=== PATIENT | female | born 1995 | race African-American/Black ===

== ENCOUNTER 2022-12-12 11:17 | Emergency (ER) | payer SELFPAY ==
[2022-12-12] MEDS ORDERED: Ondansetron 4 MG/2 ML SDV IVPUSH ONE (11:45)
[2022-12-12] MEDS ORDERED: Sodium Chloride 0.9% 1,000 ML IV SCH ×2 (11:45→13:15)
[2022-12-12] MEDS ORDERED: Pantoprazole 40 MG Vial IVPUSH ONE (12:19)
[2022-12-12] MEDS ORDERED: HYDROmorphone 0.5 MG/0.5 ML Syringe IVPUSH ONE (12:19)
[2022-12-12 12:21] LABS: ESTIMATED GFR 125 mL/min (>60)
== END 2022-12-12 14:35 | disposition home or self-care (01) ==
LOC: JP.ED 11:17
DX: K52.9 Noninfective gastroenteritis and colitis, unspecified (principal); E86.0 Dehydration; Z88.0 Allergy status to penicillin
CPT/HCPCS: 36415; 80053; 81001; 81025; 83690; 85025; 86140; 96361; 96374; 96375; 99284; C9113; J1170; J2405; J7030

== ENCOUNTER 2024-06-26 20:28 | Emergency (ER) | payer OTHER ==
[2024-06-26 21:16] LABS: BASOPHILS ABSOLUTE AUTO 0.03 K/uL (0.00-0.10); BASOPHILS PERCENT AUTO 0.5 % (0.1-1.3); EOSINOPHILS ABSOLUTE AUTO 0.11 K/uL (0.00-0.40); EOSINOPHILS PERCENT AUTO 1.7 % (0.0-5.4); HEMATOCRIT 35.8 % (34.3-46.0); HEMOGLOBIN 13.3 g/dL (11.2-15.5); IMMATURE GRAN ABSOLUTE AUTO 0.02 K/uL (0.00-0.23); IMMATURE GRAN PERCENT AUTO 0.3 % (0.0-0.7); LYMPHOCYTES ABSOLUTE AUTO 1.66 K/uL (0.8-3.3); LYMPHOCYTES PERCENT AUTO 24.9 % (11.4-47.7); MEAN CORPUSCULAR HEMOGLOBIN 31.7 pg (31.6-35.5); MEAN CORPUSCULAR HGB CONC 37.2 g/dL (31.6-35.5); MEAN CORPUSCULAR VOLUME 85.2 fL (81.4-99.0); MONOCYTES PERCENT AUTO 7.5 % (3.3-12.6); NEUTROPHILS ABSOLUTE AUTO 4.34 K/uL (1.0-7.6); NEUTROPHILS PERCENT AUTO 65.1 % (40.0-78.1); PLATELET COUNT,PLT 185 K/uL (130-375); WHITE BLOOD CELL COUNT,WBC 6.7 K/uL (3.2-11.0)
[2024-06-26] MEDS: Sodium Chloride 0.9% 1,000 ML IV SCH (21:17)
[2024-06-26] MEDS: Ondansetron 4 MG/2 ML SDV IVPUSH ONE (21:17)
[2024-06-26 21:20] LABS: AMORPHOUS SEDIMENT,URINE NOT SEEN; APPEARANCE,URINE CLEAR (CLEAR); BACTERIA,URINE RARE; BILIRUBIN,URINE SMALL (NEGATIVE); COLOR,URINE YELLOW (YELLOW); EPITHELIAL CELLS,URINE FEW; GLUCOSE,URINE NEGATIVE (NEGATIVE); KETONES,URINE 40 mg/dL (NEGATIVE); LEUKOCYTE ESTERASE,URINE NEGATIVE (NEGATIVE); MUCUS,URINE NOT SEEN; NITRITE,URINE NEGATIVE (NEGATIVE); OCCULT BLOOD,URINE TRACE-INTACT (NEGATIVE); PH,URINE 6.5 (5.0-8.0); PROTEIN,URINE TRACE mg/dL (NEGATIVE); RBC,URINE 0-5 (0-5); WBC,URINE 0-5 (0-5)
[2024-06-26] MEDS: Alum Hydrox/Mag Hydrox/Simeth 15 ML, Lidocaine 2% 15 ML PO ONE (21:27)
[2024-06-26] MEDS: Pantoprazole 80 MG in Sodium Chloride 0.9% 100 ML IV ONE (21:31)
[2024-06-26 21:33] LABS: A/G RATIO 1.1 (1.2-2.2); ALANINE AMINOTRANSFERASE,ALT 46 U/L (12-78); ALBUMIN 4.1 g/dL (3.4-5.0); ALKALINE PHOSPHATASE 61 U/L (46-116); ASPARTATE AMNIOTRANSFERASE,AST 31 U/L (15-37); BILIRUBIN TOTAL 1.2 mg/dL (0.2-1.0); BLOOD UREA NITROGEN,BUN 10 mg/dL (7-18); CARBON DIOXIDE,CO2 28 mmol/L (21-32); CHLORIDE,CL 104 mmol/L (100-108); CREATININE 0.7 mg/dL (0.6-1.0); EST CRCL DRUG DOSING (CG) 101.48 mL/min; ESTIMATED GFR 119 mL/min (>60); GLUCOSE RANDOM 104 mg/dL (74-106); POTASSIUM,K 3.1 mmol/L (3.6-5.2); PROTEIN TOTAL,TP 7.9 g/dL (6.4-8.2); SODIUM,NA 142 mmol/L (140-148)
[2024-06-26 21:34] LABS: ANION GAP 13.1 mmol/L (5.0-14.0)
== END 2024-06-26 22:46 | disposition home or self-care (01) ==
LOC: JP.ED 20:28
DX: K29.70 Gastritis, unspecified, without bleeding (principal); Z88.0 Allergy status to penicillin; Z79.899 Other long term (current) drug therapy; Z86.16 Personal history of COVID-19; Z90.49 Acquired absence of other specified parts of digestive tract
CPT/HCPCS: 36415; 80053; 81001; 81025; 83690; 85025; 96361; 96365; 96375; 99284; A9270; J2405; J2470; J3490; J7030

== ENCOUNTER 2024-10-29 03:25 | Emergency (ER) | payer OTHER ==
[2024-10-29 04:59] LABS: APPEARANCE,URINE SLIGHTLY CLOUDY (CLEAR); BILIRUBIN,URINE NEGATIVE (NEGATIVE); COLOR,URINE YELLOW (YELLOW); GLUCOSE,URINE NEGATIVE (NEGATIVE); KETONES,URINE NEGATIVE (NEGATIVE); LEUKOCYTE ESTERASE,URINE NEGATIVE (NEGATIVE); NITRITE,URINE NEGATIVE (NEGATIVE); OCCULT BLOOD,URINE NEGATIVE (NEGATIVE); PROTEIN,URINE NEGATIVE (NEGATIVE)
[2024-10-29 05:06] LABS: AMORPHOUS SEDIMENT,URINE NOT SEEN; BACTERIA,URINE FEW; EPITHELIAL CELLS,URINE MODERATE; MUCUS,URINE NOT SEEN; RBC,URINE 0-5 (0-5); WBC,URINE 0-5 (0-5)
[2024-10-29] MEDS: Ondansetron 4 MG/2 ML SDV IVPUSH ONE (05:09)
[2024-10-29] MEDS: Sodium Chloride 0.9% 1,000 ML IV STA (05:09)
[2024-10-29] MEDS: Acetaminophen 500 MG Tab PO ONE (05:09)
== END 2024-10-29 07:05 | disposition home or self-care (01) ==
LOC: JP.ED 03:25
DX: A08.4 Viral intestinal infection, unspecified (principal); J45.909 Unspecified asthma, uncomplicated; Z88.0 Allergy status to penicillin; Z86.16 Personal history of COVID-19; Z90.49 Acquired absence of other specified parts of digestive tract
CPT/HCPCS: 81001; 87428; 96361; 96374; 99284; A9270; J2405; J7030